=== PATIENT | female | born 1980 | race Caucasian/White ===

== ENCOUNTER 2022-08-01 17:23 | Emergency (ER) | payer BC ==
[2022-08-01] MEDS ORDERED: Lidocaine 1% MPF 2 ML VIAL ONE (19:17)
[2022-08-01] MEDS ORDERED: cefTRIAXone (ROCEPHIN) 500 MG VIAL ONE (19:17)
[2022-08-02 19:41] LABS: Chlamydia by PCR, Vaginal Swab Not Detected (NotDetected); GC by PCR, Vaginal Swab Not Detected (NotDetected); Tric.vaginalis PCR,Vaginal Sw Not Detected (NotDetected)
== END 2022-08-01 19:39 | disposition home or self-care (01) ==
LOC: CSHERS 17:23
DX: N72 Inflammatory disease of cervix uteri (principal); L73.9 Follicular disorder, unspecified; I10 Essential (primary) hypertension; G43.909 Migraine, unspecified, not intractable, without status migrainosus; F17.210 Nicotine dependence, cigarettes, uncomplicated
CPT/HCPCS: 87491; 87591; 87661; 99283; J0696

== ENCOUNTER 2025-03-30 12:20 | Emergency (ER) | payer OTHER ==
[2025-03-30] MEDS ORDERED: Ketorolac Tromethamine 30 MG (1 mL) VIAL ONE (15:07)
== END 2025-03-30 15:35 | disposition home or self-care (01) ==
LOC: CSHERS 12:20
DX: S92.352A Displaced fracture of fifth metatarsal bone, left foot, initial encounter for closed fracture (principal); I10 Essential (primary) hypertension; F17.210 Nicotine dependence, cigarettes, uncomplicated; Z79.899 Other long term (current) drug therapy; W19.XXXA Unspecified fall, initial encounter
CPT/HCPCS: 87428; 96372; 99284; J1885; Q0162